=== PATIENT | male | born 1965 | race Caucasian/White ===

== ENCOUNTER 2020-05-29 14:08 | Outpatient (REF) | payer BC, SELFPAY ==
[2020-05-29 15:56] LABS: MANUAL DIFF FLAG NO
[2020-05-29 16:01] LABS: Basophils Absolute Auto 0.1 X10*3/uL (0.0-0.2); Basophils Percent Auto 1.1 % (0-2); Eosinophils Absolute Auto 0.2 X10*3/uL (0.0-0.4); Eosinophils Percent Auto 3.6 % (0-4); Hematocrit 42.3 % (42-52); Hemoglobin 14.2 g/dl (14.0-18.0); Imm Gran Abs Auto 0.02 X10*3/uL (0.00-0.03); Imm Gran Pct Auto 0.3 % (0.0-0.4); Lymphocytes Absolute Auto 2.2 X10*3/uL (1.2-4.9); Lymphocytes Percent Auto 33.5 % (20-40); Mean Corpuscular HGB Conc 33.6 g/dl (31.0-36.0); Mean Corpuscular Hemoglobin 29.8 pg (27.0-33.0); Mean Corpuscular Volume 88.9 fL (80-98); Mean Platelet Volume 9.7 fL (9.4-12.4); Monocytes Absolute Auto 0.8 X10*3/uL (0.1-1.2); Monocytes Percent Auto 11.8 % (2-11); Neutrophils Absolute Auto 3.3 X10*3/uL (2.0-8.3); Neutrophils Percent Auto 49.7 % (45-73); Platelet Count 298 X10*3/uL (160-400); Red Blood Count 4.76 X10*6/uL (4.60-5.80); Red Cell Distribution Width 12.5 % (11.0-16.0); White Blood Count 6.6 X10*3/uL (4.8-10.8)
[2020-05-29 17:12] LABS: Erythrocyte Sedimentation Rate 9 MM/HR (0-15)
[2020-05-30 10:33] LABS: Immunoglobulin G Subclass 1 435 mg/dL (382-929); Immunoglobulin G Subclass 2 458 mg/dL (241-700); Immunoglobulin G Subclass 3 48 mg/dL (22-178); Immunoglobulin G Subclass 4 89.7 mg/dL (4-86); Immunoglobulin G Total 1106 mg/dL (600-1640)
[2020-05-30 16:22] LABS: Anti Nuclear Antibody Screen NEGATIVE (NEGATIVE)
[2020-05-30 22:39] LABS: Immunoglobulin E 4 kU/L (<OR=114)
[2020-06-04 22:56] LABS: Asperg fumigatus Precip Abs NEGATIVE (NEGATIVE); Micropoly faeni Abs NEGATIVE (NEGATIVE); Pigeon serum Abs NEGATIVE (NEGATIVE); Saccharo pora viridis Abs NEGATIVE (NEGATIVE); Thermo candidus Abs NEGATIVE (NEGATIVE); Thermoa vulgaris #1 NEGATIVE (NEGATIVE)
== END 2020-05-29 14:09 | disposition home or self-care (01) ==
LOC: HO.LAB 14:08
PROVIDERS: PCP Internal Medicine; Visit Provider Hospitalist
DX: R91.8 Other nonspecific abnormal finding of lung field (principal); R05 Cough; K21.9 Gastro-esophageal reflux disease without esophagitis; G47.33 Obstructive sleep apnea (adult) (pediatric); I25.10 Atherosclerotic heart disease of native coronary artery without angina pectoris; I25.84 Coronary atherosclerosis due to calcified coronary lesion
CPT/HCPCS: 36415; 82784; 82785; 85025; 85652; 86038; 86039; 86331; 86606; 86609

== ENCOUNTER → 2020-06-29 14:21 | Outpatient (BNVA) | payer BC, SELFPAY | PROVIDERS: PCP Internal Medicine; Visit Provider Hospitalist | DX: Z76.89 Persons encountering health services in other specified circumstances (principal) ==

== ENCOUNTER 2020-08-25 13:40 | Outpatient (REF) | payer BC, SELFPAY ==
--- NOTE | 2020-08-25 16:33 | PFT_ITS ---
FLOWS: FEV1 of 84% of predicted at 3.37 L. FVC 73% of predicted at 3.85 L. FEV1 to FVC ratio of 0.88. No bronchodilator response. LUNG VOLUMES: Total lung capacity 80% of predicted at 5.92 L. Residual volume 82% of predicted at 1.86 L. Slow vital capacity 79% of predicted at 4.06 L. Expiratory reserve volume 5% of predicted at 0.09 L. Diffusion capacity is normal. IMPRESSION: No obstructive or restrictive ventilatory defect. No bronchodilator response. Decreased expiratory reserve volume suggests extrathoracic restriction likely secondary to abdominal obesity. Bernard Navarro MD AP/MODL / [id number]
== END 2020-08-25 13:41 | disposition home or self-care (01) ==
LOC: HO.RESP 13:40
PROVIDERS: Visit Provider Hospitalist
DX: R05 Cough (principal)
CPT/HCPCS: 94060; 94727; 94729

== ENCOUNTER → 2020-11-24 13:59 | Outpatient (BNVA) | payer BC, SELFPAY | PROVIDERS: PCP Internal Medicine; Visit Provider Hospitalist ==